=== PATIENT | male | born 1970 | race Caucasian/White ===

== ENCOUNTER → 2022-12-25 14:15 | Outpatient (CLI) | payer BC, SELFPAY ==
--- NOTE | ~2022-12-25 | XR_ITS ---
Thoracic spine: Clinical Indication: Back pain AP and lateral views were performed. No fracture is seen. There is normal alignment of the vertebrae. The intervertebral disc spaces appe ar normal. Paravertebral soft tissues appear normal. Impression: No significant abnormalities noted. Reviewed, dictated and finalized at [facility]. Impression: No significant abnormalities noted.
--- NOTE | ~2022-12-25 | XR_ITS ---
Lumbosacral Spine: AP and lateral views Clinical History: Pain Findings: The normal lordotic curve is maintained. The vertebral bodies and posterior elements are i ntact. There is mild to moderate degenerative disc narrowing at L5-S1. The sacroiliac joints are nor ana rosa outlined. Impression: Degenerative disc narrowing at L5-S1, as noted above. Reviewed, dictated and finalized at location . Impression: Degenerative disc narrowing at L5-S1, as noted above.
== END ==
PROVIDERS: PCP Nurse Practitioner Family; Visit Provider Nurse Practitioner Family
DX: M54.6 Pain in thoracic spine (principal); M54.50 Low back pain, unspecified
CPT/HCPCS: 72072; 72100